=== PATIENT | male | born 1970 | race Caucasian/White ===

== ENCOUNTER 2025-01-09 08:58 | Emergency (ER) | payer OTHER, SELFPAY ==
[2025-01-09 08:58] VITALS: BP 148/84; PULSE 110; RESP 20; TEMP 37.2; O2SAT 98; BMI 37.5
--- NOTE | 2025-01-09 09:13 | EX.ED.DYSGE1 ---
HPI History of Present Illness Chief Complaint: Flank Pain Informant: patient and spouse/S.O. Narrative Narrative: Very pleasant 54-year-old male presenting to the emergency room with sudden onset of left lower abdominal pain rating to the left flank. He notes associated nausea and vomiting. He states that aches. Painful form. No testicular pain. He notes his urine is darker than normal now. No prior history of kidney stones. He he notes a prior cholecystectomy is well is history of hypertension hypercholesterolemia. He not eat yet today but did have a cup of coffee. Pain is not exacerbated by walking. [facility] Medical History (Updated 01/09/25 @ 11:[address] Sergio Aly, ) Hypercholesterolemia Hypertension Home Medications ?Medication ?Instructions ?Recorded ?Last Taken ?Type ketorolac 10 mg tablet 10 mg PO Q8H PRN pain #15 tabs 01/09/25 Unknown Rx ondansetron 4 mg disintegrating 4 mg PO Q6H PRN PRN Nausea #15 tabs 01/09/25 Unknown Rx tablet oxycodone-acetaminophen 5 mg-325 1 tab PO Q6H PRN PRN Pain 3 days 01/09/25 Unknown Rx mg tablet #12 TABLETS Allergy/AdvReac Type Severity Reaction Status Date / Time Penicillins (PCN) Allergy UNKNOWN Verified 01/09/25 09:00 Surgical History (Updated 01/09/25 @ 09:[address] Sergio Aly, DO) History of cholecystectomy ROS ROS ED Constitutional Constitutional ED: Reports sweats; Denies chills, fever(s) or weight loss Eyes Eyes: Denies change in vision or diplopia ENT ENT ED: Denies ear pain, rhinorrhea or sore throat Cardiovascular Cardiovascular: Denies chest pain, orthopnea, palpitations or racing heartbeat Respiratory/Chest Respiratory/Chest: Denies cough, dyspnea or orthopnea Gastrointestinal Gastrointestinal: Reports abdominal pain, nausea and vomiting; Denies diarrhea Genitourinary Genitourinary ED: Denies dysuria, hematuria or urinary frequency Musculoskeletal Musculoskeletal: Reports back pain; Denies arthralgias or myalgias Integumentary Denies abscess or rash Neurologic Neurologic: Denies headache(s) or weakness Psychiatric Psychiatric: Denies anxiety, depression, suicidal ideation or suicidal thoughts Endocrine Endocrinology: Denies polydipsia, polyphagia or polyuria Allergic/Immunologic Allergic/Immunologic ED: Denies mouth swelling, tongue swelling or urticaria EXAM Physical Exam Narrative Exam Narrative: 54-year-old male sitting up in the bed. He appears very uncomfortable with the degree of writhing. Const Vital Signs: 01/09/25 08:58 Temperature 99 F Temperature Source Temporal Pulse Rate 110 H Respiratory Rate 20 H Blood Pressure 148/84 H Blood Pressure Mean 105 Pulse Ox 98 Oxygen Delivery Method Room Air Positive well nourished and well developed General Appearance ED: well developed HEENT Reports normocephalic, head/scalp atraumatic and moist mucous membranes Eyes PERRL and EOMs intact bilaterally Neck no lymphadenopathy, supple and no JVD Resp normal respiratory effort and clear to auscultation bilaterally Cardio regular rate, regular rhythm and no murmurs GI normal to inspection, nondistended, normoactive bowel sounds and non-tender Palpation: soft Back/Spine no CVA tenderness and normal ROM Extremity normal to inspection General Extremety ED: Negative for edema General Extremity: Negative for edema Neuro oriented x3 and CN's II-XII intact bilaterally Sensorium / Orientation: alert Motor Exam: strength 5/5 throughout Psych mental status grossly normal Mood & Affect: Negative for depressed or tearful Skin no rashes or lesions noted and no wounds Skin Narrative: Diaphoretic cool skin MDM MDM MDM Narrative Medical decision making narrative: Differential diagnosis includes but not limited to kidney stone UTI pyelonephritis diverticulitis epiploic appendagitis mesenteric adenitis colitis Urinalysis demonstrates greater than 100 red blood cells no obvious infection. White count 11.5 fluid count of 298 hemoglobin 15.6. Patient's creatinine is 1.16. CT then pelvis demonstrates a distal ureteral stone on the left with hydronephrosis hydroureter. Patient received pain and nausea medication. His symptoms have improved. I believe the patient can be discharged home with pain control nausea medicine. Follow-up as needed with urology return if worsening or concerns History & Record Review Discussion w/independent historian: Patient and Significant other Lab Data Attestation: I reviewed the patient's lab results. Labs: Laboratory Results - last 24 hr 01/09/25 01/09/25 09:25 09:35 WBC 11.5 H RBC 5.28 Hgb 15.6 Hct 44.7 MCV 84.7 MCH 29.5 MCHC 34.9 RDW Std Deviation 38.7 RDW Coeff of Jimmy 12.6 Plt Count 298 MPV 9.4 Immature Gran % (Auto) 0.400 Neut % (Auto) 74.4 H Lymph % (Auto) 17.0 L [place] % (Auto) 5.2 Eos % (Auto) 2.1 Baso % (Auto) 0.9 Absolute Neuts (auto) 8.6 H Absolute Lymphs (auto) 1.96 Nucleated RBC % 0 Sodium 140 Potassium 4.1 Chloride 105 Carbon Dioxide 20.9 L Anion Gap 14 BUN 19 Creatinine 1.16 Estim Creat Clear Calc 86.25 Est GFR (MDRD) Non-Af 74 BUN/Creatinine Ratio 16.1 Glucose 162 H Calcium 9.5 Urine Color Yellow Urine Clarity Cloudy Urine pH 6.0 Ur Specific [place] 1.020 Urine Protein 30 H Urine Glucose (UA) Normal Urine Ketones 5 H Urine Occult Blood 250 H Urine Nitrite Positive H Urine Bilirubin 1 H Urine Urobilinogen 1 H Ur Leukocyte Esterase 25 H Urine RBC > 100 SEEN Urine WBC 0 SEEN Ur Squamous Epith Cells 0 SEEN Urine Bacteria 0 SEEN Urine Mucus 0 SEEN Radiography Diagnostic Testing: Clinical Impression(s) from Imaging Studies Abdomen/Pelvis CT 01/09/25 10:00 IMPRESSION: 1. Anterior ventral hernia of the lower mid abdomen containing fat. No bowel obstruction. 2. 2 mm calculus of the left UVJ resulting in minimal to mild hydroureteronephrosis. 3. Hepatomegaly with fatty infiltration. 4. Bilateral inguinal hernias. 5. Colonic diverticulosis without acute diverticulitis. Reading [facility] Discharge Plan Triage Chief Complaint: Flank Pain Other Complaint: Abd Pain ED Provider: Sergio Aly Dx/Rx/DC Orders Clinical Impression: Ureterolithiasis, Acute flank pain Instructions: ED Kidney Stone with Pain Prescriptions: New ketorolac 10 mg tablet 10 mg PO Q8H PRN (Reason: pain) Qty: 15 0RF Rx Instructions: maximum total duration of 5 days from all oral, intranasal, or parenteral formulations oxycodone-acetaminophen 5-325 mg tablet 1 tab PO Q6H PRN PRN (Reason: Pain) 3 Days Qty: 12 0RF ondansetron 4 mg tablet,disintegrating 4 mg PO Q6H PRN PRN (Reason: Nausea) Qty: 15 0RF Primary Care Provider: Malina Garcia Referrals: Donis Lacy MD [Med Staff - Active Staff] - As Needed (for urology) Malina Garcia DO [Primary Care Provider] - As Needed Print Language: Korean Disposition Disposition: Home, Self Care
[2025-01-09] MEDS: Morphine 4 MG/ML Syringe IV (09:27)
[2025-01-09] MEDS: Ondansetron 4 MG/2 ML Vial IV ×2 (09:27→09:42)
[2025-01-09] MEDS: Ketorolac 30 MG/ML Syringe IV (09:27)
[2025-01-09 09:41] LABS: Bacteria 0 SEEN /hpf (None Seen); Mucous, Urine 0 SEEN /hpf (<or=2+); Squamous Epithelial Cells - UA 0 SEEN /hpf (0-5); White Blood Cells 0 SEEN /hpf (0-5)
[2025-01-09] MEDS: Lorazepam 2 MG/ML WCH Syringe IV (09:42)
[2025-01-09 09:48] LABS: Color, Urine Yellow (Yellow); Glucose, Dipstick Normal (Normal); Ketone-Dipstick 5 mg/dl (Negative); Leukocyte Esterase-Dipstick 25 /ul (Negative); Nitrite-Dipstick Positive (Negative); Occult Blood-Urine 250 /ul (Negative); Protein-Dipstick 30 mg/dl (Negative); Urine Clarity Cloudy (Clear); Urine Urobilinogen 1 mg/dl (Normal)
[2025-01-09 09:52] LABS: Absolute Lymphocyte Count 1.96 X10^3/uL (0.83-4.51); Absolute Neutrophil Count 8.6 X10^3/uL (2.0-7.7); Basophil% 0.9 % (0-1); Eosinophil# 0.24 X10^3/uL; Eosinophils% 2.1 % (0-5); Hematocrit 44.7 % (40-54); Hemoglobin 15.6 g/dL (13.0-16.5); Lymphocyte # 1.96 X10^3/ul (0.83-4.51); Mean Corp Hgb Conc 34.9 g/dL (32-36); Mean Corpuscular Hgb 29.5 pg (27.0-32.0); Mean Corpuscular Volume 84.7 fL (80-94); Mean Platelet Vol. 9.4 fl (6.2-12.0); Monocyte% 5.2 % (0-10); NRBC Flagged by Analyzer 0 % (0-5); Neutrophil # 8.59 X10^3/uL (2.7-7.7); Neutrophil % 74.4 % (47-70); Platelet Count 298 K/mm3 (150-450); RBC Distribution Width CV 12.6 % (11.6-14.6); RBC Distribution Width SD 38.7 fl (35.1-43.9); Red Blood Count 5.28 M/mm3 (4.6-6.2); White Blood Count 11.5 K/mm3 (4.4-11.0)
[2025-01-09 09:57] LABS: Urine Bilirubin Dipstick 1 mg/dL (Negative)
[2025-01-09 09:58] LABS: Red Blood Cells-Urine > 100 SEEN /hpf (0-5)
--- NOTE | 2025-01-09 10:00 | CT_ITS ---
EXAM: CT Abdomen and Pelvis Without Intravenous Contrast CLINICAL INDICATION: KIDNEY STONE TECHNIQUE: Axial computed tomography images of the abdomen and pelvis without intravenous contrast. This CT exam was performed using one or more of the following dose reduction techniques: automated exposure control, adjustment of the mA and/or kV according to patient size, and/or use of iterative reconstruction technique. COMPARISON: No relevant prior studies available. FINDINGS: LUNG BASES: Unremarkable. No mass. No consolidation. ABDOMEN: LIVER: Hepatomegaly with fatty infiltration. GALLBLADDER AND BILE DUCTS: Gallbladder is surgically absent. No ductal dilation. PANCREAS: Unremarkable. No ductal dilation. SPLEEN: Unremarkable. No splenomegaly. ADRENALS: Unremarkable. No mass. KIDNEYS AND URETERS: 2 mm calculus of the left UVJ resulting in minimal to mild hydroureteronephrosis. STOMACH AND BOWEL: Anterior ventral hernia of the lower mid abdomen containing fat. No bowel obstruction. Colonic diverticulosis without acute diverticulitis. PELVIS: APPENDIX: No findings to suggest acute appendicitis. BLADDER: Unremarkable. No stones. REPRODUCTIVE: Unremarkable as visualized. ABDOMEN and PELVIS: INTRAPERITONEAL SPACE: Unremarkable. No free air. No significant fluid collection. BONES/JOINTS: No acute fracture. No dislocation. SOFT TISSUES: Bilateral inguinal hernias. VASCULATURE: Unremarkable. No abdominal aortic aneurysm. LYMPH NODES: Unremarkable. No enlarged lymph nodes. CT/Abdomen/Pelvis without Cont IMPRESSION: 1. Anterior ventral hernia of the lower mid abdomen containing fat. No bowel obstruction. 2. 2 mm calculus of the left UVJ resulting in minimal to mild hydroureteroneph rosis. 3. Hepatomegaly with fatty infiltration. 4. Bilateral inguinal hernias. 5. Colonic diverticulosis without acute diverticulitis. Reading Location[facility]
[2025-01-09 11:11] LABS: Anion Gap 14 (5-15); BUN 19 mg/dL (4-19); BUN/Creat Ratio 16.1 RATIO (10-20); Calcium,Total 9.5 mg/dL (7.6-11.0); Carbon Dioxide 20.9 mmol/L (21.0-32.0); Chloride 105 mmol/L (98-108); Creatinine, Serum 1.16 mg/dL (0.70-1.20); EST Glomerular Filtration Rate 74 (>60); Estimated Creatinine Clearance 86.25 ml/min (50-250); Glucose 162 mg/dL (70-99); Potassium 4.1 mmol/L (3.3-5.1); Sodium Level 140 mmol/L (133-145)
[2025-01-09 11:36] VITALS: BP 143/91; PULSE 84; RESP 16; TEMP 36.6; O2SAT 97
[2025-01-09 12:02] VITALS: BP 145/87; PULSE 85; RESP 16; TEMP 37.1; O2SAT 96
== END 2025-01-09 12:03 | disposition home or self-care (01) ==
PROVIDERS: Emergency Provider Emergency Medicine; PCP Family Medicine; Visit Provider Emergency Medicine
DX: N13.2 Hydronephrosis with renal and ureteral calculous obstruction (principal); E78.00 Pure hypercholesterolemia, unspecified; R10.9 Unspecified abdominal pain; Z90.49 Acquired absence of other specified parts of digestive tract; I10 Essential (primary) hypertension
CPT/HCPCS: 74176; 80048; 81001; 85025; 96361; 96374; 96375; 96376; 99284; J2405